=== PATIENT | male | born 1955 | race American Indian/Alaskan Native ===

== ENCOUNTER → 2025-02-01 | Emergency (ER) | payer OTHER ==
[~2025-02-01] VITALS: Ht 177.8 cm; Wt 88.9 kg
[~2025-02-01] MED LIST: ARBLI10 MG/1 ML PO; KETOROLAC TROMETHAMINE 60 MG VIAL IM ONE; NORFLEX100MG PO; SIMVASTATIN5 MG PO
== END | disposition home or self-care (01) ==
LOC: ER 10:19 → EDBD 10:19 → ER 11:50
DX: M25.561 Pain in right knee (principal); I10 Essential (primary) hypertension
CPT/HCPCS: 73560; 96372; 99283; J1885